=== PATIENT | female | born 1970 | race Caucasian/White ===

== ENCOUNTER 2016-03-21 08:00 | Emergency (ER) | payer OTHER ==
[2016-03-21 08:34] VITALS: BP 132/75; PULSE 74; TEMP 97.8; BMI 34.3
[2016-03-21] MEDS ORDERED: IBUPROFEN 600 MG TAB PO ONE (08:48)
[2016-03-21] MEDS ORDERED: ACETAMINOPHEN 325 MG/TAB TABLET PO ONE (08:48)
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
== END 2016-03-21 09:30 | disposition home or self-care (01) ==
LOC: ED 08:00
DX: S50.11XA Contusion of right forearm, initial encounter (principal); V49.50XA Passenger injured in collision with unspecified motor vehicles in traffic accident, initial encounter; Y93.9 Activity, unspecified; Y92.410 Unspecified street and highway as the place of occurrence of the external cause
CPT/HCPCS: 99283; J3490